=== PATIENT | female | born 1965 | race African-American/Black ===

== ENCOUNTER 2020-06-13 03:34 | Inpatient (IN) | payer SELFPAY ==
[2020-06-13] MEDS ORDERED: FUROSEMIDE 40 MG/4 ML VIAL ONE (04:33)
[2020-06-13 05:14] LABS: Absolute Lymphocytes (CBC) 2.2 K/uL (0.7-4.9); Hematocrit 44.8 % (36.0-45.0); Lymphocytes % 25.8 % (15.3-44.8); MPV 10.9 fL (7.6-11.3); Protime INR 1.67; RBC Red Blood Cell Count 4.59 M/uL (3.86-4.86)
[2020-06-13 05:43] LABS: Albumin 3.6 g/dL (3.4-5.0); Bilirubin Direct 1.5 mg/dL (0-0.2); Magnesium 2.2 mg/dL (1.8-2.4); Potassium 3.7 mmol/L (3.5-5.1); Troponin (Emerg Dept Use Only) 0.15 ng/mL (0.0-0.045)
[2020-06-13] MEDS ORDERED: METOPROLOL TARTRATE 5 MG/5 ML INJ IV ONE (05:54)
[2020-06-13 06:08] LABS: Barbiturates NEGATIVE (NEGATIVE); Benzodiazepines NEGATIVE (NEGATIVE); Cocaine NEGATIVE (NEGATIVE); METHAMPHETAM NEGATIVE (NEGATIVE); Methadone NEGATIVE (NEGATIVE); Opiates NEGATIVE (NEGATIVE); Phencyclidine NEGATIVE (NEGATIVE); THC Cannibis NEGATIVE (NEGATIVE)
[2020-06-13 06:10] LABS: Thyroid Stimulating Hormone 4.58 uIU/mL (0.360-3.740)
[2020-06-13] MEDS ORDERED: NITROGLYCERIN 1 GM PKT TD ONE (06:15)
[2020-06-13 06:36] LABS: Anisocytosis 1+; Blood Morphology Comment NOTED (NOT SEEN); Hypochromasia 1+; Macrocytosis 2+; Platelet Estimate ADEQ; Polychromasia 1+
--- NOTE | 2020-06-13 07:35 | RAD REPORT ---
EXAM DESCRIPTION: CT - Abdomen Pelvis Wo Contrast - 06/13/2020 6:49 am CLINICAL HISTORY: Abdominal pain COMPARISON: None TECHNIQUE: Computed axial tomography of the abdomen and pelvis was obtained. IV and oral contrast we re not requested. All CT scans are performed using dose optimization technique as appropriate and may include automated exposure control or mA/KV adjustment according to patient size. FINDINGS: The evaluation of solid organs, vessels and bowel is limited secondary to the lack of con trast administration. A couple tiny low-density lesions within within the liver are nonspecific but probably cysts Spleen, pancreas, adrenals and kidneys appear grossly normal. A ventral hernia within the lower abdomen has a neck of 20 millimeters. The herniated fat measures 9 centimeters. Small amount of fluid is present within the hernia. The uterus is enlarged and lobulated containing calcification. The uterus measures 13 x 15 x 12 centi meters. The heart is markedly enlarged. A small pericardial effusion is present. IMPRESSION: Enlarged fibroid uterus Marked cardiomegaly with small pericardial effusion
--- NOTE | 2020-06-13 07:58 | EDPHYS ---
Physician Documentation [facility] Name: Tyrel Harris Age: 54 yrs Sex: Female : 1965 Arrival Date: 06/13/2020 Time: 03:40 Bed 4 Private MD: ED Physician Wilder Marcial HPI: 06/13 04:26 This 54 yrs old Black Female presents to ER via Ambulatory with complaints of High mh7 Blood Pressure, Low Blood Sugar, Cough, Shortness Of Breath, Fluid retention. 04:26 The patient has shortness of breath with light activity. mh7 04:27 Onset: The symptoms/episode began/occurred 3 week(s) ago, and became worse 3 day(s) mh7 ago. Duration: The symptoms are intermittent, with no pattern. The patient's shortness of breath is aggravated by exertion, light activity, is alleviated by rest. Associated signs and symptoms: Pertinent negatives: chest pain, non-productive cough, productive cough, diaphoresis, dizziness, fever, hemoptysis, loss of consciousness, nausea, numbness in extremities, visual changes, vomiting. Severity of symptoms: At their worst the symptoms were moderate today, in the emergency department the symptoms are unchanged. The patient has been recently seen by a physician: the patient's primary care provider. 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 - Social history:: Smoking status: Patient denies any tobacco usage or history of. ROS: 04:27 Constitutional: Negative for fever, chills, and weight loss, Eyes: Negative for injury, mh7 pain, redness, and discharge, ENT: Negative for injury, pain, and discharge, Neck: Negative for injury, pain, and swelling, Abdomen/GI: Negative for abdominal pain, nausea, vomiting, diarrhea, and constipation, Back: Negative for injury and pain, : Negative for injury, bleeding, discharge, and swelling, Skin: Negative for injury, rash, and discoloration, Neuro: Negative for headache, weakness, numbness, tingling, and seizure, Psych: Negative for depression, anxiety, suicide ideation, homicidal ideation, and hallucinations, Allergy/Immunology: Negative for hives, rash, and allergies, Endocrine: Negative for neck swelling, polydipsia, polyuria, polyphagia, and marked weight changes, Hematologic/Lymphatic: Negative for swollen nodes, abnormal bleeding, and unusual bruising. Exam: 04:27 Head/Face: Normocephalic, atraumatic. Eyes: Pupils equal round and reactive to light, mh7 extra-ocular motions intact. Lids and lashes normal. Conjunctiva and sclera are non-icteric and not injected. Cornea within normal limits. Periorbital areas with no swelling, redness, or edema. Neck: Trachea midline, no thyromegaly or masses palpated, and no cervical lymphadenopathy. Supple, full range of motion without nuchal rigidity, or vertebral point tenderness. No Meningismus. Chest/axilla: Normal chest wall appearance and motion. Nontender with no deformity. No lesions are appreciated. 04:27 Abdomen/GI: Soft, non-tender, with normal bowel sounds. No distension or tympany. No guarding or rebound. No evidence of tenderness throughout. Back: No spinal tenderness. No costovertebral tenderness. Full range of motion. Skin: Warm, dry with normal turgor. Normal color with no rashes, no lesions, and no evidence of cellulitis. 04:27 Neuro: Awake and alert, GCS 15, oriented to person, place, time, and situation. Cranial nerves II-XII grossly intact. Motor strength 5/5 in all extremities. Sensory grossly intact. Cerebellar exam normal. Normal gait. Psych: Awake, alert, with orientation to person, place and time. Behavior, mood, and affect are within normal limits. 04:27 Constitutional: The patient appears alert, awake, anxious, uncomfortable. 04:27 Cardiovascular: Rate: tachycardic, Rhythm: regular, Pulses: no pulse deficits are appreciated, Heart sounds: normal, normal S1and S2, Edema: pedal edema, that is moderate, JVD: is not appreciated. 04:27 Respiratory: mild respiratory distress is noted, Respirations: prolonged exhalation, that is mild, Breath sounds: rhonchi, that are moderate, are scattered, Respiratory rate: 22 04:27 Musculoskeletal/extremity: Extremities: noted in the right leg and left leg: swelling, ROM: intact in all extremities, Circulation is intact in all extremities. Sensation intact. Compartment Syndrome exam of affected extremity: is normal. no pain, no numbness, no tingling, no sensation deficit, no palor, no weak pulses, Joints: All joints appear normal with full range of motion. Vital Signs: 03:54 BP 237 / 161; Pulse 131; Resp 22; Temp 98.2; Pulse Ox 99% on R/A; Weight 90.72 kg; ea Height 5 ft. (152.40 cm); 04:30 BP 218 / 153; Pulse 126; Resp 20; Pulse Ox 97% ; Pain 0/10; mt2 05:12 BP 198 / 157; Pulse 124; Resp 19; Pulse Ox 99% on R/A; Pain 0/10; mt2 06:00 BP 182 / 148; Pulse 113; Resp 20; Pulse Ox 100% ; ea 07:00 BP 191 / 147; Pulse 108; Resp 17; Pulse Ox 100% ; bp 08:22 BP 196 / 143; Pulse 101; Resp 17; Pulse Ox 99% ; bp 08:51 BP 175 / 105; Pulse 101; Resp 16; Pulse Ox 100% ; bp 10:30 BP 183 / 121; Pulse 102; Resp 22; Pulse Ox 98% ; bp 12:24 BP 172 / 114; Pulse 104; Resp 33; Pulse Ox 99% ; bp 14:18 BP 173 / 122; Pulse 105; Resp 27; Pulse Ox 98% ; bp 03:54 Body Mass Index 39.06 (90.72 kg, 152.40 cm) ea MDM: 04:17 Patient medically screened. [facility] 07:00 Transition of care: After a detail discussion of the patient's case, care is mh7 transferred to Wilder Marcial MD. 07:54 Differential diagnosis: Pneumothorax pulmonary edema, CHF, malignant HTN, [place]. Data rn reviewed: vital signs, nurses notes, lab test result(s), EKG, radiologic studies, CT scan, plain films, and as a result, I will admit patient. Counseling: I had a detailed discussion with the patient and/or guardian regarding: the historical points, exam findings, and any diagnostic results supporting the discharge/admit diagnosis, lab results, radiology results, the need for further work-up and treatment in the hospital. ED course: Pt signed out to me by Dr. Rasheed pending ct abdomen. Reports labs consistent with volume overload/CHF possibly, with elevated BNP and troponin, ECG no ischemia, given metoprolol and nitropaste prior to my arrival, patient feels a little better with some improvement of BP. Plan was to admit for malignant HTN and possible CHF once ct abdomen neg. . 06/13 04:10 Order name: Basic Metabolic Panel; Complete Time: 07:03 ea 06/13 04:10 Order name: CBC with Diff; Complete Time: 07:03 ea 06/13 04:10 Order name: LFT's; Complete Time: 07:04 ea 06/13 04:10 Order name: Magnesium; Complete Time: 07:04 ea 06/13 04:10 Order name: NT PRO-BNP; Complete Time: 07:04 ea 06/13 04:10 Order name: PT-INR; Complete Time: 05:29 ea 06/13 04:10 Order name: Troponin (emerg Dept Use Only); Complete Time: 07:04 ea 06/13 05:32 Order name: UDS; Complete Time: 06:10 mh7 06/13 05:48 Order name: Thyroid Stimulating Hormone; Complete Time: 07:04 EDMS 06/13 06:12 Order name: T4 Free; Complete Time: 07:04 EDMS 06/13 06:21 Order name: Urine Dipstick--Ancillary (enter results); Complete Time: 08:32 ar5 06/13 06:21 Order name: Urine --Ancillary (enter results); Complete Time: 08:32 ar5 06/13 06:21 Order name: AMMONIA; Complete Time: 07:04 ea 06/13 06:36 Order name: Manual Differential; Complete Time: 07:04 EDMS 06/13 09:48 Order name: CBC with Automated Diff EDMS 06/13 09:48 Order name: CBC with Automated Diff EDMS 06/13 09:48 Order name: Comprehensive Metabolic Panel EDMS 06/13 09:48 Order name: Comprehensive Metabolic Panel EDMS 06/13 09:48 Order name: Lactate EDMS 06/13 09:48 Order name: Lactate EDMS 06/13 09:48 Order name: Lipid Profile EDMS 06/13 09:48 Order name: Lipid Profile EDMS 06/13 09:48 Order name: Magnesium [facility] 06/13 09:48 Order name: Magnesium [facility] 06/13 09:48 Order name: NT PRO-BNP [facility] 06/13 09:48 Order name: NT PRO-BNP [facility] 06/13 09:48 Order name: Phosphorus [facility] 06/13 09:48 Order name: Phosphorus [facility] 06/13 04:10 Order name: XRAY Chest (1 view); Complete Time: 11:46 06/13 04:10 Order name: EKG; Complete Time: 04:10 06/13 04:10 Order name: Cardiac monitoring; Complete Time: 04:11 06/13 04:10 Order name: EKG - Nurse/Tech; Complete Time: 04:11 06/13 04:10 Order name: IV Saline Lock; Complete Time: 04:11 06/13 04:10 Order name: Labs collected and sent; Complete Time: 04:12 06/13 04:10 Order name: O2 Per Protocol; Complete Time: 04:12 06/13 04:10 Order name: O2 Sat Monitoring; Complete Time: 04:12 06/13 05:33 Order name: Urine Dipstick-Ancillary (obtain specimen); Complete Time: 06:56 [facility] 06/13 05:33 Order name: Urine Test (obtain specimen); Complete Time: 06:56 06/13 06:10 Order name: CT Abd/Pelvis - Without Contrast; Complete Time: 07:47 [facility] 06/13 09:48 Order name: CONS Physician Consult [facility] 06/13 09:48 Order name: Heart Healthy [facility] 06/13 09:48 Order name: Troponin I [facility] 06/13 09:48 Order name: Troponin I [facility] 06/13 09:48 Order name: Troponin I [facility] 06/13 11:11 Order name: COVID-19 aa5 06/13 11:51 Order name: CORONAVIRUS [facility] 06/13 12:53 Order name: SARS-COV-2 RT PCR [facility] 06/13 14:34 Order name: Diet Regular; Complete Time: 14:34 kj1 Administered Medications: 04:25 Drug: Lasix 40 mg Route: IVP; Site: right antecubital; ea 06:56 Follow up: Response: No adverse reaction ea 05:28 CANCELLED (Physician Discretion): Nitro-Bid Ointment 2 % 1 inches Transdermal once [facility] 05:42 Drug: Lopressor 5 mg Route: IVP; Site: right antecubital; ea 06:56 Follow up: Response: No adverse reaction ea 06:10 Drug: Nitro-Bid Ointment 2 % 1 inches Route: Transdermal; Site: anterior chest wall; mt2 08:20 Drug: hydrALAZINE 10 mg Route: IV; Rate: calculated rate; Site: right antecubital; bp 08:52 Follow up: Response: Blood pressure is lowered; IV Status: Completed infusion bp Disposition: 06/13/20 07:58 Hospitalization ordered by Rupinder Condon for Inpatient Admission. Preliminary diagnosis are Hypertension, Dyspnea, unspecified, Volume overload. - Bed requested for Intensive Care Unit. - Status is Inpatient Admission. bp - Condition is Stable. - Problem is new. - Symptoms have improved. Signatures: Dispatcher [employer] EDMS Wilder Marcial MD MD rn Antunez, Elena, RN RN ea Peltier, Brian, RN RN bp Holmes, Maurice, MD MD [facility] Little Mendes RN RN mt2 Corrections: (The following items were deleted from the chart) 05:28 05:26 Nitro-Bid Ointment 2 % 1 inches Transdermal once ordered. [place] [id number] 05:48 05:34 THYROID STIMULAT HORMONE+C.LAB.BRZ ordered. EDRI EDMS 06:36 05:35 CBC Smear Scan ordered. EDRI EDMS 11:31 07:58 Hospitalization Ordered by Rupinder Condon MD for Inpatient Admission. Preliminary rn diagnosis is Hypertension; Dyspnea, unspecified; Volume overload. Bed requested for Telemetry/MedSurg (Inpatient). Status is Inpatient Admission. Condition is Stable. Problem is new. Symptoms have improved. rn 18:47 11:31 06/13/2020 07:58 Hospitalization Ordered by Rupinder Condon MD for Inpatient bp Admission. Preliminary diagnosis is Hypertension; Dyspnea, unspecified; Volume overload. Bed requested for Intensive Care Unit. Status is Inpatient Admission. Condition is Stable. Problem is new. Symptoms have improved. rn
--- NOTE | 2020-06-13 07:58 | ER ---
Nurse's Notes [facility] Name: Tyrel Harris Age: 54 yrs Sex: Female : 1965 Arrival Date: 06/13/2020 Time: 03:40 Bed 4 Private MD: Diagnosis: Hypertension;Dyspnea, unspecified;Volume overload Presentation: 06/13 03:54 Chief complaint: Patient states: Reports she has been running high blood pressures for ea the past three weeks reports she saw her PCP Jesu Stephens on Wednesday of this week and was prescribed triamterene 50 mg. Pt reports her symptoms worsened and she feels like she is retaining fluid and is short of breath with exertion. Coronavirus screen: At this time, the client does not indicate any symptoms associated with coronavirus-19. Ebola Screen: No symptoms or risks identified at this time. Initial Sepsis Screen: Does the patient meet any 2 criteria? HR > 90 bpm. Does the patient have a suspected source of infection? No. Patient's initial sepsis screen is negative. Risk Assessment: Do you want to hurt yourself or someone else? Patient reports no desire to harm self or others. Onset of symptoms was June 13, 2020. 03:54 Method Of Arrival: Ambulatory ea 03:54 Acuity: ULYSSES 3 ea Triage Assessment: 03:58 General: Appears uncomfortable, Behavior is appropriate for age. Pain: Denies pain. ea Neuro: Level of Consciousness is awake, alert, obeys commands, Oriented to person, place, time, situation. Respiratory: Reports shortness of breath on exertion Onset: The symptoms/episode began/occurred reports it has been going on for a few days, the patient has mild shortness of breath. Derm: Skin is pink, warm \T\ dry. Musculoskeletal: Circulation, motion, and sensation intact. 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 - Social history:: Smoking status: Patient denies any tobacco usage or history of. Screenin:58 Abuse screen: Denies threats or abuse. Nutritional screening: No deficits noted. ea Tuberculosis screening: No symptoms or risk factors identified. Fall Risk None identified. Assessment: 04:28 Reassessment: Patient and/or family updated on plan of care and expected duration. Pain mt2 level reassessed. Patient is alert, oriented x 3, equal unlabored respirations, skin warm/dry/pink. General: Appears distressed, uncomfortable, Behavior is cooperative. Pain: Denies pain. Neuro: No deficits noted. Cardiovascular: Reports shortness of breath, Heart tones present Capillary refill < 3 seconds Rhythm is sinus tachycardia. Respiratory: Airway is patent Respiratory effort is labored, Respiratory pattern is regular, Breath sounds with wheezes. GI: No deficits noted. : No deficits noted. EENT: No deficits noted. Derm: No deficits noted. Musculoskeletal: No deficits noted. 05:00 Cardiovascular: Musculoskeletal: Swelling present in right foot and left foot. mt2 05:39 Reassessment: Dottie (daughter) [phone], [id number]. ea 05:40 Reassessment: Patient and/or family updated on plan of care and expected duration. Pain ea level reassessed. Patient is alert, oriented x 3, equal unlabored respirations, skin warm/dry/pink. 06:00 Reassessment: Patient and/or family updated on plan of care and expected duration. Pain ea level reassessed. Patient is alert, oriented x 3, equal unlabored respirations, skin warm/dry/pink. 07:00 Reassessment: RECD REPORT FROM MIROSLAVA DRAKE. 54YO BF P/W SOB AND EDEMA. LAB RESULTS PENDING bp FOR DISPO. 08:22 Reassessment: ADMIT INITIATED. PT REMAINS HYPERTENSIVE, PROVIDER AWARE. bp 10:30 Reassessment: ADMIT IN PROCESS. NO S/S ACUTE DISTRESS. bp 12:24 Reassessment: PT RESTING QUIETLY, NO S/S ACUTE DISTRESS. ADMIT IN PROCESS. bp 14:18 Reassessment: PT RESTING QUIETLY, VS STABLE ON MONITOR. bp 18:46 Reassessment: REPORT TO ICU NURSE, PT TO 9. bp Vital Signs: 03:54 BP 237 / 161; Pulse 131; Resp 22; Temp 98.2; Pulse Ox 99% on R/A; Weight 90.72 kg; ea Height 5 ft. (152.40 cm); 04:30 BP 218 / 153; Pulse 126; Resp 20; Pulse Ox 97% ; Pain 0/10; mt2 05:12 BP 198 / 157; Pulse 124; Resp 19; Pulse Ox 99% on R/A; Pain 0/10; mt2 06:00 BP 182 / 148; Pulse 113; Resp 20; Pulse Ox 100% ; ea 07:00 BP 191 / 147; Pulse 108; Resp 17; Pulse Ox 100% ; bp 08:22 BP 196 / 143; Pulse 101; Resp 17; Pulse Ox 99% ; bp 08:51 BP 175 / 105; Pulse 101; Resp 16; Pulse Ox 100% ; bp 10:30 BP 183 / 121; Pulse 102; Resp 22; Pulse Ox 98% ; bp 12:24 BP 172 / 114; Pulse 104; Resp 33; Pulse Ox 99% ; bp 14:18 BP 173 / 122; Pulse 105; Resp 27; Pulse Ox 98% ; bp 03:54 Body Mass Index 39.06 (90.72 kg, 152.40 cm) ea ED Course: 03:40 Patient arrived in ED. es 03:47 Little Mendes, NOELLE is Primary Nurse. ct2 03:58 Triage completed. ea 03:58 Patient has correct armband on for positive identification. Placed in gown. Bed in low ea position. Call light in reach. Side rails up X 1. 03:58 Arm band placed on right wrist. Patient placed in an exam room, on a stretcher, on ea court recording monitor, on pulse oximetry. 04:11 Mario Rasheed MD is Attending Physician. [facility] 04:20 XRAY Chest (1 view) In Process Unspecified. EDMS 04:26 Initial lab(s) drawn, by mn, sent to lab. Inserted saline lock: 20 gauge in right mt2 antecubital area, using aseptic technique. Blood collected. 06:49 CT Abd/Pelvis - Without Contrast In Process Unspecified. EDMS 07:00 Primary Nurse role handed off by Little Mendes, NOELLE bp 07:00 Jonas Hodges, NOELLE is Primary Nurse. bp 07:02 Attending Physician role handed off by Mario Rasheed MD rn 07:02 Wilder Marcial MD is Attending Physician. rn 07:57 Rupinder Condon MD is Hospitalizing Provider. rn 18:47 No provider procedures requiring assistance completed. Patient admitted, IV remains in bp place. Administered Medications: 04:25 Drug: Lasix 40 mg Route: IVP; Site: right antecubital; ea 06:56 Follow up: Response: No adverse reaction ea 05:28 CANCELLED (Physician Discretion): Nitro-Bid Ointment 2 % 1 inches Transdermal once mh7 05:42 Drug: Lopressor 5 mg Route: IVP; Site: right antecubital; ea 06:56 Follow up: Response: No adverse reaction ea 06:10 Drug: Nitro-Bid Ointment 2 % 1 inches Route: Transdermal; Site: anterior chest wall; mt2 08:20 Drug: hydrALAZINE 10 mg Route: IV; Rate: calculated rate; Site: right antecubital; bp 08:52 Follow up: Response: Blood pressure is lowered; IV Status: Completed infusion bp Outcome: 07:58 Decision to Hospitalize by Provider. rn 18:46 Admitted to ICU accompanied by nurse, accompanied by tech, via stretcher, room 9, bp Report called to MARY DRAKE 18:46 Condition: stable 18:46 Instructed on the need for admit. 18:47 Patient left the ED. bp Signatures: Dispatcher [employer] Nae An Roman, MD MD rn Antunez, Elena, RN RN ea Peltier, Brian, RN RN bp Holmes, Maurice, MD MD [facility] Little Mendes RN RN mt2 Corrections: (The following items were deleted from the chart) 04:05 03:54 Chief complaint: Patient states: Reports she has been running high blood ea pressures for the past three weeks reports she saw her PCP Jesu Stephens and was prescribed triamterene 50 mg. Pt reports her symptoms worsened and she feels like she is retaining fluid and is short of breath with exertion ea
[2020-06-13] MEDS ORDERED: HYDRALAZINE HCL 20 MG/ML VIAL ONE (08:28)
[2020-06-13 08:31] LABS: Urine Blood 2+ (NEG); Urine Glucose NEGATIVE (NEG); Urine Protein 3+ (NEG)
[2020-06-13] MEDS ORDERED: ONDANSETRON 4 MG/2 ML VIAL IV PRN (09:44)
[2020-06-13] MEDS ORDERED: ACETAMINOPHEN 500 MG TAB PO PRN (09:44)
[2020-06-13] MEDS ORDERED: NICARDIPINE HCL 25 MG in NA CHLORIDE 0.9% 240 ML IV PRN (09:48)
[2020-06-13] MEDS: NA CHLORIDE 0.9% 1,000 ML IV SCH (10:00)
[2020-06-13] MEDS: AMLODIPINE 10 MG TAB PO SCH (11:00)
--- NOTE | 2020-06-13 11:32 | RAD REPORT ---
EXAM DESCRIPTION: RAD - Chest Single View - 06/13/2020 4:24 am CLINICAL HISTORY: The patient is 54 years old and is Female; SOB TECHNIQUE: Frontal view of the chest. COMPARISON: No relevant prior studies available. FINDINGS: LUNGS: Unremarkable. No consolidation. PLEURAL SPACE: Unremarkable. No pneumothorax. HEART: The cardiac silhouette is enlarged. MEDIASTINUM: Unremarkable. BONES/JOINTS: Unremarkable. IMPRESSION: Cardiomegaly without failure. Given the appearance of the cardiac silhouette, underlying pericardial effusion is not excluded. Consider follow-up with echocardiogram. Electronically signed by: Maritza Blank MD 06/13/2020 4:52 AM CDT Due to temporary technical issues with the PACS/Fluency reporting system, reports are being signed by the in house radiologist without review as a courtesy to ensure prompt reporting. The interpreting r adiologist is fully responsible for the content of the report.
[2020-06-13] MEDS ORDERED: AMLODIPINE 10 MG TAB ONE (16:08)
[2020-06-13] MEDS ORDERED: NA CHLORIDE 0.9% 1,000 ML ONE (16:08)
[2020-06-13] MEDS ORDERED: METOPROLOL TAR 25 MG TAB PO SCH (18:00)
[2020-06-13] MEDS ORDERED: cloNIDine HCL 0.1 MG TAB PO ONE (18:19)
[2020-06-13] MEDS ORDERED: Nicardipine/NS 25 MG/250 ML KIT IV ONE (18:34)
[2020-06-13] MEDS: METOPROLOL TAR 50 MG TAB PO SCH (19:09)
[2020-06-13] MEDS: ENOXAPARIN 40 MG/0.4 ML SQ SCH (19:10)
[2020-06-13] MEDS ORDERED: ENOXAPARIN 40 MG/0.4 ML SQ ONE (19:15)
[2020-06-13] MEDS ORDERED: METOPROLOL TAR 50 MG TAB ONE (19:15)
[2020-06-14] MEDS ORDERED: ZIPRASIDONE MESYLA 20 MG/VIAL IM ONE (00:14)
[2020-06-14] MEDS ORDERED: WATER FOR INJ,STERILE 10 ML ONE (00:14)
[2020-06-14] MEDS: NA CHLORIDE 0.9% 1,000 ML IV SCH (05:39)
[2020-06-14] MEDS: METOPROLOL TAR 50 MG TAB PO SCH ×2 (05:39→18:01)
[2020-06-14] MEDS ORDERED: NA CHLORIDE 0.9% 1,000 ML ONE ×2 (05:42→09:00)
[2020-06-14] MEDS ORDERED: METOPROLOL TAR 50 MG TAB ONE ×2 (05:42→16:56)
[2020-06-14 06:02] LABS: Absolute Lymphocytes (CBC) 0.9 K/uL (0.7-4.9); Basophils % 0.6 % (0-1.3); Hematocrit 45.8 % (36.0-45.0); Lymphocytes % 9.8 % (15.3-44.8); RBC Red Blood Cell Count 4.69 M/uL (3.86-4.86)
[2020-06-14 06:46] LABS: Albumin 2.8 g/dL (3.4-5.0); Bilirubin Total 2.6 mg/dL (0.2-1.0); Phosphorus 3.4 mg/dL (2.5-4.9); Potassium 3.5 mmol/L (3.5-5.1); Protein, Total 5.7 g/dL (6.4-8.2)
--- NOTE | 2020-06-14 07:55 | EKG ---
Test Date: 2020-06-13 Test Time: 05:58:15 Corner Former: SERGEI MEASUREMENT RESULTS: Intervals: Rate: 114 NM: 162 QRSD: 108 QT: 338 QTc: 465 [place]: P: 64 NM: 162 QRS: 14 T: 59 INTERPRETIVE STATEMENTS: Sinus tachycardia Biatrial enlargement Abnormal ECG Compared to ECG 06/13/2020 03:58:11 Right-axis deviation no longer present Left ventricular hypertrophy no longer present Early repolarization no longer present Electronically Signed On 06-14-20 07:53:27 CDT by Efrain Reddy
[2020-06-14] MEDS ORDERED: ENOXAPARIN 40 MG/0.4 ML SQ ONE (09:00)
[2020-06-14] MEDS ORDERED: AMLODIPINE 10 MG TAB ONE (09:00)
[2020-06-14] MEDS: ENOXAPARIN 40 MG/0.4 ML SQ SCH (09:05)
[2020-06-14] MEDS: AMLODIPINE 10 MG TAB PO SCH (09:05)
--- NOTE | 2020-06-14 10:06 | P.HP ---
Certification for Inpatient Patient admitted to: Inpatient With expected LOS: >2 Midnights Patient will require the following post-hospital care: None Practitioner: I am a practitioner with admitting privileges, knowledge of patient current condition, hospital course, and medical plan of care. Services: Services provided to patient in accordance with Admission requirements found in Title 42 Section 412.3 of the Code of Federal Regulations Patient History Date of Service: 06/13/20 Reason for admission: HYPERTENSIVE EMERGENCY History of Present Illness: PATIENT IS A 54-YEAR-OLD FEMALE CAME TO THE HOSPITAL WITH SIGNIFICANTLY ELEVATED BLOOD PRESSURE OF 240/150. PATIENT WAS STARTED ON ANTI HYPERTENSIVES IN THE EMERGENCY ROOM. HOWEVER, HER BLOOD PRESSURE WAS NOT IMPROVING SO WILL GO AHEAD AND START HER ON A CARDENE DRIP. WILL ALSO CONTINUE ORAL ANTI HYPERTENSIVES AND SLOWLY WEAN OFF THE CARDENE DRIP. WATER BRING THE BLOOD PRESSURE DOWN GRADUALLY PATIENT HAS HAD SIGNIFICANTLY ELEVATED BLOOD PRESSURE POSSIBLY FOR QUITE A WHILE. SHE IS FEELING A LITTLE BIT BETTER AND WILL MONITOR HER IN THE ICU. Allergies No Known Allergies Allergy (Verified 06/13/20 19:28) Home Medications: Triamterene 1 tab PO DAILY 06/13/20 hydroCHLOROthiazide [Hydrochlorothiazide] 1 tab PO DAILY 06/13/20 - Past Medical/Surgical History Has patient received pneumonia vaccine in the past: No Diabetic: No -: hypertension Past Surgical History: Patient denies surgical history - Family History Father Medical History: Hypertension Mother Medical History: Hypertension - Social History Smoking Status: Never smoker Alcohol use: No CD- Drugs: No Caffeine use: Yes Place of Residence: Home Review of Systems 10-point ROS is otherwise unremarkable Physical Examination - Vital Signs Temperature: 98.5 F Blood Pressure: 155/122 Pulse: 99 Respirations: 20 Pulse Ox (%): 99 - Physical Exam General: Alert, In no apparent distress, Oriented x3 HEENT: Atraumatic, PERRLA, Mucous membr. moist/pink, EOMI, Sclerae nonicteric Neck: Supple, 2+ carotid pulse no bruit, No LAD, Without JVD or thyroid abnormality Respiratory: Clear to auscultation bilaterally, Normal air movement Cardiovascular: Regular rate/rhythm, Normal S1 S2, No murmurs Gastrointestinal: Normal bowel sounds, Soft and benign, Non-distended, No tenderness Musculoskeletal: No clubbing, No swelling, No tenderness Integumentary: No rashes Neurological: Normal gait, Normal speech, Normal strength at 5/5 x4 extr, Normal tone, Sensation intact, Cranial nerves 3-12 intact, Normal affect Lymphatics: No axilla or inguinal lymphadenopathy Assessment & Plan - Problems (Diagnosis) (1) Hypertensive emergency, no CHF Current Visit: Yes Status: Acute (2) Chest pain, rule out acute myocardial infarction Current Visit: Yes Status: Acute - Plan PLAN: 1. START CARDENE DRIP 2. START LOPRESSOR AND LOSARTAN ORALLY IN GRADUALLY WEAN OFF THE CARDENE DRIP 3. ECHOCARDIOGRAM 4. CARDIAC MEDS 5. GI AND DVT PROPHYLAXIS Discharge Plan: Home Plan to discharge in: Greater than 2 days - Advance Directives Does patient have a Living Will: No Does patient have a Durable POA for Healthcare: No - Code Status/Comfort Care Code Status Assessed: Yes Code Status: Full Code Critical Care: Yes Time Spent Managing PTS Care (In Minutes): 45
[2020-06-14] MEDS ORDERED: FUROSEMIDE 40 MG/4 ML VIAL IV ONE (10:08)
[2020-06-14] MEDS ORDERED: FUROSEMIDE 40 MG/4 ML VIAL ONE (12:23)
[2020-06-14] MEDS: HYDRALAZINE HCL 25 MG TABLET PO SCH ×2 (14:20→20:05)
[2020-06-14 15:20] VITALS: O2SAT 99
[2020-06-14] MEDS ORDERED: METOPROLOL TAR 25 MG TAB ONE (16:48)
--- NOTE | 2020-06-14 22:55 | P.PN ---
Subjective Date of Service: 06/14/20 Subjective: No new changes, No C/O voiced Pt is feeling better; will wean off cardene drip. Add hydralazine to regimen. If able to get Cardene drip weaned off then we will transfer to general medical floor. Awaiting echocardiogram results as well. Review of Systems 10-point ROS is otherwise unremarkable Physical Examination - Vital Signs Temperature: 98.6 F Blood Pressure: 138/96 Pulse: 100 Respirations: 20 Pulse Ox (%): 100 - Physical Exam General: Alert, In no apparent distress, Oriented x3 Respiratory: Clear to auscultation bilaterally, Normal air movement Cardiovascular: Regular rate/rhythm, Normal S1 S2, No murmurs Gastrointestinal: Normal bowel sounds, Soft and benign, Non-distended, No tenderness Musculoskeletal: No clubbing, No swelling, No tenderness Integumentary: No rashes Neurological: Sensation intact, Cranial nerves 3-12 intact - Studies Medications List Reviewed: Yes Assessment & Plan - Problems (Diagnosis) (1) Hypertensive emergency, no CHF Current Visit: Yes Status: Acute (2) Chest pain, rule out acute myocardial infarction Current Visit: Yes Status: Acute - Plan PLAN: 1. START CARDENE DRIP ; WILL GRADUALLY WEAN OFF TODAY. 2. START LOPRESSOR AND AMLODIPINE AND HAVE ADDED HYDRALAZINE TO THE REGIMEN. WE WILL ATTEMPT TO WEAN OFF THE CARDENE DRIP AND TRANSFER TO GENERAL MEDICAL FLOOR TODAY. 3. ECHOCARDIOGRAM RESULTS ARE PENDING 4. CONTINUE WITH CARDIAC MEDS 5. GI AND DVT PROPHYLAXIS Discharge Plan: Home Plan to discharge in: Greater than 2 days - Advance Directives Does patient have a Living Will: No Does patient have a Durable POA for Healthcare: No - Code Status/Comfort Care Code Status: Full Code Critical Care: Yes Time Spent Managing PTS Care (In Minutes): 35
[2020-06-15 03:28] VITALS: BMI 42.2
[2020-06-15] MEDS: METOPROLOL TAR 50 MG TAB PO SCH (05:15)
--- NOTE | 2020-06-15 05:38 | CON ---
Date of Consultation: 06/14/2020 Reason For Consultation: Hypertensive crisis. History Of Present Illness: Ms. Harris is a 54-year-old woman, who came in with cough, shortness of b reath, hypertension. Denied any chest pain. She denied any nausea, vomiting, diaphoresis, PND, orth opnea, pedal edema, palpitations, or syncope. She denied fever or chills. She came in with a blood pressure 178/128. Her last blood pressure was 140/100. She had been placed on Norvasc, Cardene drip , and metoprolol. The only medication she took at home was triamterene with hydrochlorothiazide. Th e patient had a creatinine of 1.57 on admission and it was one-down to 1.11. Past Medical History: Include only hypertension. Allergies: NONE. Review of Systems: Negative. Social History: Negative. Family History: Noncontributory. Physical Examination: Vital Signs: Her last pressure was 140/100. She was in a sinus rhythm. HEENT: Negative. Neck: Supple with no bruit. Chest: Clear. Cardiac: Revealed a regular rhythm and rate with an S4 gallops. No murmurs or rubs. Abdomen: Benign. Extremities: Revealed no clubbing, cyanosis, or edema. Laboratory Data: Chest x-ray is negative. EKG showed LVH. Troponin was high. BNP was high. Her T SH was elevated. Her ALT and AST were all elevated. Impression And Plan: Hypertensive crisis, on Norvasc, Cardene, and metoprolol. I would personally d iscontinue the Cardene drip. Increase Norvasc, increase metoprolol. Put her back on hydrochlorothia zide and put her on hydralazine. She needs to have her thyroid level addressed. She needs to have h er liver enzymes addressed as well. I believe the troponin increase and the BNP could increase are s econdary to her hypertension. There is no evidence of acute coronary syndrome. I will continue to f darwin her and I will discuss the case further with Dr. Condon. MEERA/DHARMESH Voice ID: [id number] Report ID: [id number]
[2020-06-15 06:37] LABS: Potassium 3.9 mmol/L (3.5-5.1)
[2020-06-15] MEDS: HYDRALAZINE HCL 25 MG TABLET PO SCH (07:57)
[2020-06-15] MEDS: ENOXAPARIN 40 MG/0.4 ML SQ SCH (07:58)
[2020-06-15] MEDS: AMLODIPINE 10 MG TAB PO SCH (07:58)
[2020-06-15 08:19] VITALS: BP 140/100; TEMP 97.6
--- NOTE | 2020-06-15 09:46 | P.DS ---
Admission Date: 06/13/20 Discharge Date: 06/15/20 Primary Care Provider: Dr. Kyle-[facility] Disposition: ROUTINE DISCHARGE Discharge Condition: GOOD Reason for Admission: HYPERTENSIVE EMERGENCY Consultations: Cardiology-Dr. Reddy Procedures: CT scan: FINDINGS: The evaluation of solid organs, vessels and bowel is limited secondary to the lack of contrast administration. A couple tiny low-density lesions within within the liver are nonspecific but probably cysts Spleen, pancreas, adrenals and kidneys appear grossly normal. A ventral hernia within the lower abdomen has a neck of 20 millimeters. The herniated fat measures 9 centimeters. Small amount of fluid is present within the hernia. The uterus is enlarged and lobulated containing calcification. The uterus measures 13 x 15 x 12 centimeters. The heart is markedly enlarged. A small pericardial effusion is present. IMPRESSION: Enlarged fibroid uterus Marked cardiomegaly with small pericardial effusion ECHO: EF 20% Medical problem list: Hypertensive urgency with hypertension complicated with new chronic systolic CHF, cardiomegaly Elevated troponin likely related to above Elevated liver function suspect underlying fatty liver verses other etiology Acute renal insufficiency likely related to above Abnormal thyroid function CT showing enlarged fibroid uterus Brief History of Present Illness: 54-year-old female presented with shortness of breath. Patient found to have elevated blood pressure. Patient reported history of hypertension but had not been on medication in quite some time. Patient required Cardene drip for blood pressure control. Troponin slightly elevated as well. Patient admitted for further evaluation and treatment. Hospital Course: Patient presented with shortness of breast secondary to hypertensive crisis. Patient required IV Cardene drip. Patient seen and evaluated by Cardiology. Echocardiogram showed ejection fraction of 20%. Patient was weaned off Cardene IV drip to oral medication. Blood pressure now better controlled. Troponin was elevated but this was likely related to hypertensive crisis. This was confirmed by Cardiology. Patient without significant shortness of breath. No significant edema to the lower extremities noted. At discharge patient will continue with aspirin 81 mg daily, metoprolol 50 mg 1 pill twice daily, lisinopril 10 mg 1 pill twice daily, and hydralazine 25 mg 1 pill 3 times a day. Recommend to maintain blood pressure less than 140/90. May need to hold blood pressure medications in blood pressure systolic less than 120. May need to hold metopr olol if heart rate less than 50. Recommend to monitor blood pressure daily. Further adjustment in medication may be required for better control. Education on hypertension and CHF will be provided. Patient may benefit with Entresto for CHF in the future. This can be further addressed by cardiology and her PCP as an outpatient. Further evaluation by cardiology will be required. This includes cardiac intervention. Patient may also require pacemaker defibrillator in the future if her condition continues to decline. This can be addressed further by Cardiology. Recommend follow up with cardiology in 1-2 weeks to follow up this hospitalization and to further address her conditions. As mentioned above, patient found to have ejection fraction of 20%. Patient with systolic CHF. Suspect chronic CHF. No significant edema noted at this time. Shortness of breath improved. At discharge, Patient will also continue with a 1500 cc per day fluid restriction and low-salt diet. She is to monitor her weight daily. If her weight increases by more than 5 lb she is to contact her PCP or cardiology for further recommendation. At discharge patient will continue with Lasix 40 mg daily. Medication can be further adjusted and monitored by Cardiology. This can be weaned down to as needed bases if weight and shortness of breath well controlled. Patient had elevated liver function tests. CT scan revealed suspected small liver cysts. Suspect other etiology including fatty liver versus other. Liver function tests improved. Hepatitis panel and HIV panel obtained. This can be followed up as an outpatient. Recommend to recheck CMP in 1-2 weeks to monitor her progress. Recommend dedicated outpatient liver ultrasound to further evaluate. Patient may benefit with GI evaluation as an outpatient to further address. Patient with mild renal insufficiency likely related to above. Recommend outpatient renal ultrasound as an outpatient to further evaluate. Patient may benefit with nephrology evaluation as an outpatient to further address. Patient with abnormal thyroid function. Tsh and free T4 elevated. Recommend to recheck tsh and free T4 in 2-4 weeks to monitor progress. Patient may require endocrinology evaluation or medication if this remains abnormal. CT scan revealed fibroid uterus. Recommend gynecology evaluation as an outpatient to further address as an outpatient. Vital Signs/Physical Exam: Temp Pulse Resp BP Pulse Ox 97.6 F 85 18 140/100 H 99 06/15/20 08:00 06/15/20 08:00 06/15/20 08:00 06/15/20 08:00 06/15/20 08:00 General: Alert, In no apparent distress, Oriented x3, Cooperative HEENT: Atraumatic Neck: Supple Respiratory: Clear to auscultation bilaterally, Normal air movement Cardiovascular: Normal pulses, Regular rate/rhythm Gastrointestinal: Normal bowel sounds, Soft and benign, Non-distended, No tenderness, No masses, No rebound, No guarding Musculoskeletal: No erythema, No tenderness, No warmth Integumentary: No tenderness/swelling, No erythema, No warmth, No cyanosis Neurological: Normal speech, Normal strength at 5/5 x4 extr, Normal tone, Normal affect Laboratory Data at Discharge: WBC 9.3 K/uL (4.3-10.9) 06/14/20 05:45 Hgb 14.9 g/dL (12.0-15.0) 06/14/20 05:45 Hct 45.8 % (36.0-45.0) H 06/14/20 05:45 Plt Count 110 K/uL (152-406) L 06/14/20 05:45 PT 19.5 SECONDS (9.5-12.5) H 06/13/20 04:46 INR 1.67 06/13/20 04:46 Sodium 141 mmol/L (136-145) 06/15/20 06:09 Potassium 3.9 mmol/L (3.5-5.1) 06/15/20 06:09 BUN 25 mg/dL (7-18) H 06/15/20 06:09 Creatinine 1.28 mg/dL (0.55-1.3) 06/15/20 06:09 Glucose 145 mg/dL (74-106) H 06/15/20 06:09 Phosphorus 3.4 mg/dL (2.5-4.9) 06/14/20 05:45 Magnesium 2.0 mg/dL (1.8-2.4) 06/14/20 05:45 Total Bilirubin 2.6 mg/dL (0.2-1.0) H 06/14/20 05:45 AST 88 U/L (15-37) H 06/14/20 05:45 ALT 167 U/L (12-78) H 06/14/20 05:45 Alkaline Phosphatase 110 U/L (45-117) 06/14/20 05:45 Troponin I 0.14 ng/mL (0.0-0.045) H 06/13/20 20:09 Triglycerides 68 mg/dL (<150) 06/14/20 05:45 Cholesterol 107 mg/dL (<200) 06/14/20 05:45 HDL Cholesterol 20 mg/dL (40-60) L 06/14/20 05:45 Cholesterol/HDL Ratio 5.35 06/14/20 05:45 Home Medications: Aspirin [Aspirin EC 81 MG] 81 mg PO DAILY #90 tablet. 06/15/20 Furosemide [Lasix] 40 mg PO DAILY #30 tab 06/15/20 Hydralazine [Apresoline*] 25 mg PO TID #90 tab 06/15/20 Metoprolol Tartrate [Lopressor*] 50 mg PO BID 6AM 6PM #60 tab 06/15/20 lisinopriL [Prinivil*] 10 mg PO BID #60 tab 06/15/20 New Medications: Hydralazine [Apresoline*] 25 mg PO TID #90 tab Aspirin [Aspirin EC 81 MG] 81 mg PO DAILY #90 tablet. Furosemide [Lasix] 40 mg PO DAILY #30 tab Metoprolol Tartrate [Lopressor*] 50 mg PO BID 6AM 6PM #60 tab lisinopriL [Prinivil*] 10 mg PO BID #60 tab Patient Discharge Instructions: 1. Recommend follow up with PCP as an outpatient to further address. 2. Patient presented with shortness of breast secondary to hypertensive crisis. Patient required IV Cardene drip. Patient seen and evaluated by Cardiology. Echocardiogram showed ejection fraction of 20%. Patient was weaned off Cardene IV drip to oral medication. Blood pressure now better controlled. Troponin was elevated but this was likely related to hypertensive crisis. This was confirmed by Cardiology. Patient without significant shortness of breath. No significant edema to the lower extremities noted. At discharge patient will continue with aspirin 81 mg daily, metoprolol 50 mg 1 pill twice daily, lisinopril 10 mg 1 pill twice daily, and hydralazine 25 mg 1 pill 3 times a day. Recommend to maintain blood pressure less than 140/90. May need to hold blood pressure medications in blood pressure systolic less than 120. May need to hold metoprolol if heart rate less than 50. Recommend to monitor blood pressure daily. Further adjustment in medication may be required for better control. Education on hypertension and CHF will be provided. Patient may benefit with Entresto for CHF in the future. This can be further addressed by cardiology and her PCP as an outpatient. Further evaluation by cardiology will be required. This includes cardiac intervention. Patient may also require pacemaker defibrillator in the future if her condition continues to decline. This can be addressed further by Cardiology. Recommend follow up with cardiology in 1-2 weeks to follow up this hospitalization and to further address her conditions. 3. As mentioned above, patient found to have ejection fraction of 20%. Patient with systolic CHF. Suspect chronic CHF. No significant edema noted at this time. Shortness of breath improved. At discharge, Patient will also continue with a 1500 cc per day fluid restriction and low-salt diet. She is to monitor her weight daily. If her weight increases by more than 5 lb she is to contact her PCP or cardiology for further recommendation. At discharge patient will continue with Lasix 40 mg daily. Medication can be further adjusted and monitored by Cardiology. This can be weaned down to as needed bases if weight and shortness of breath well controlled. 4. Patient had elevated liver function tests. CT scan revealed suspected small liver cysts. Suspect other etiology including fatty liver versus other. Liver function tests improved. Hepatitis panel and HIV panel obtained. This can be followed up as an outpatient. Recommend to recheck CMP in 1-2 weeks to monitor her progress. Recommend dedicated outpatient liver u ltrasound to further evaluate. Patient may benefit with GI evaluation as an outpatient to further address. 5. Patient with mild renal insufficiency likely related to above. Recommend outpatient renal ultrasound as an outpatient to further evaluate. Patient may benefit with nephrology evaluation as an outpatient to further address. 6. Patient with abnormal thyroid function. Tsh and free T4 elevated. Recommend to recheck tsh and free T4 in 2-4 weeks to monitor progress. Patient may require endocrinology evaluation or medication if this remains abnormal. 7. CT scan revealed fibroid uterus. Recommend gynecology evaluation as an outpatient to further address as an outpatient. Diet: AHA Activity: Ad rony Time spent managing pt's care (in minutes): 55
[2020-06-15] MEDS ORDERED: lisinopriL 10 MG TAB PO SCH (21:00)
[2020-06-16] MEDS ORDERED: ASPIRIN EC 81 MG TAB PO SCH (09:00)
--- NOTE | 2020-06-17 08:31 | ECHO ---
HEIGHT: 5 ft 1 in WEIGHT: 223 lb 4.8 oz DATE OF STUDY: 06/14/[address]: Efrain Reddy MD 2-DIMENSIONAL: YES M.MODE: YES DOPPLER: YES COLOR FLOW: YES TDS: NO PORTABLE: NO DEFINITY: NO BUBBLE STUDY: NO DIAGNOSIS: HYPERTENSION CARDIAC HISTORY: CATHERIZATION: NO SURGERY: NO PROSTHETIC VALVE: NO PACEMAKER: NO MEASUREMENTS (cm) DIASTOLIC (NORMALS) SYSTOLIC (NORMALS) IVSd 1.4 (0.6-1.2) LA Diam 4.2 (1.9-4.0) LVEF 15-20% LVIDd 5.6 (3.5-5.7) LVIDs 5.2 (2.0-3.5) %FS 6% LVPWd 1.9 (0.6-1.2) Ao Diam 2.6 (2.0-3.7) 2 DIMENSIONAL ASSESSMENT: RIGHT ATRIUM: NORMAL, THROMBUS LEFT ATRIUM: DILATED RIGHT VENTRICLE: NORMAL LEFT VENTRICLE: LEFT VENTRICULAR HYPERTROPHY TRICUSPID VALVE: NORMAL MITRAL VALVE: NORMAL PULMONIC VALVE: NORMAL AORTIC VALVE: NORMAL PERICARDIAL EFFUSION: NONE AORTIC ROOT: NORMAL LEFT VENTRICULAR WALL MOTION: SEVERE GLOBAL HYPOKINESIS. DOPPLER/COLOR FLOW: MODERATE MITRAL AND TRICUSPID REGURGITATION. NORMAL RIGHT VENTRICULAR SYSTOLIC PRESSURE. COMMENTS: SEVERE LEFT VENTRICULAR HYPERTROPHY. SEVERE GLOBAL HYPOKINESIS. LEFT VENTRICULAR EJECTION FRACTION 15-20%. MODERATE MITRAL AND TRICUSPID REGURGITATION. NORMAL RIGHT VENTRICULAR SYSTOLIC PRESSURE. RIGHT ATRIAL THROMBUS. TECHNOLOGIST: Sandra SPIVEY
[2020-06-18 16:23] LABS: HIV AG/AB 4TH GEN Non-reactive (Non-reactive)
[2020-06-18 19:03] LABS: HBsAG Nonreactive (Nonreactive)
== END 2020-06-15 11:15 | disposition home or self-care (01) | DRG 305 ==
LOC: ER 03:34 → ERHOLD 09:44 → 4TH 06-15 03:23
PROVIDERS: ADMIT Hospitalist; ATTEND Family Medicine
DX: I16.1 Hypertensive emergency (principal); I50.22 Chronic systolic (congestive) heart failure; I11.0 Hypertensive heart disease with heart failure; N28.9 Disorder of kidney and ureter, unspecified; Z11.59 Encounter for screening for other viral diseases
CPT/HCPCS: 36415; 71045; 74176; 80048; 80053; 80061; 80074; 80076; 80307; 81003; 81025; 82140; 83605; 83735; 83880; 84100; 84439; 84443; 84484; 85025; 85610; 87389; 93005; 93306; 96365; 96375; 99285; J0360; J1650; J1940; J3486; J7030; J7050; U0003

== ENCOUNTER 2020-06-17 00:43 | Emergency (ER) | payer SELFPAY ==
--- NOTE | 2020-06-17 01:42 | ER ---
Nurse's Notes [facility] Name: Tyrel Harris Age: 54 yrs Sex: Female : 1965 Arrival Date: 06/17/2020 Time: 00:44 Bed 20 Private MD: Diagnosis: Dizziness and giddiness Presentation: 06/17 00:55 Chief complaint: Patient states: HAD AN EPISODE OF DIZZINESS UPON STANDING UP FROM THE rv BED TONIGHT, FOR ABOUT FIVE MINUTES. I JUST WANT TO KNOW IF MY MEDICATIONS WERE GIVING ME THE DIZZINESS. I WAS JUST DISCHARGED TODAY. PATIENT DENIES DIZZINESS AT THE MOMENT. Coronavirus screen: At this time, the client does not indicate any symptoms associated with coronavirus-19. Ebola Screen: No symptoms or risks identified at this time. Initial Sepsis Screen: Does the patient meet any 2 criteria? No. Patient's initial sepsis screen is negative. Does the patient have a suspected source of infection? No. Patient's initial sepsis screen is negative. Risk Assessment: Do you want to hurt yourself or someone else? Patient reports no desire to harm self or others. Onset of symptoms was June 16, 2020 at 22:00. 00:55 Method Of Arrival: Wheelchair 00:55 Acuity: ULYSSES 3 rv Triage Assessment: 01:01 General: Appears comfortable, Behavior is calm, cooperative. Pain: Denies pain. EENT: No signs and/or symptoms were reported regarding the EENT system. Neuro: Level of Consciousness is awake, alert, obeys commands, Oriented to person, place, time, situation, Reports dizziness, FOR ABOUT FIVE MINUTES, THREE HOURS AGO. Cardiovascular: Patient's skin is warm and dry. Respiratory: Airway is patent. Derm: Skin is intact. EYEGLASS CUTTER: 01:55 LMP N/A - Post-menopause bb Historical: - Allergies: 01: No Known Allergies; rv - Home Meds: : hydralazine 25 mg Oral tab 1 tab three times a day [Active]; furosemide 40 mg Oral tab rv 1 tab once daily [Active]; metoprolol tartrate 50 mg Oral tab 1 tab [Active]; aspirin 81 mg Oral chew 1 tab once daily [Active]; lisinopril 10 mg Oral tab 1 tab twice a day [Active]; - PMHx: 01: Hypertension; rv - PSHx: 01:01 None; rv - Immunization history:: Adult Immunizations up to date. - Social history:: Smoking status: Patient denies any tobacco usage or history of. Screenin:03 Abuse screen: Denies threats or abuse. Denies injuries from another. Nutritional rv screening: No deficits noted. Tuberculosis screening: No symptoms or risk factors identified. Fall Risk None identified. Assessment: 01:53 Reassessment: Patient is alert, oriented x 3, equal unlabored respirations, skin bb warm/dry/pink. pt verbalized understanding of and agrees to plan of care discharge instructions given pt assisted to exit via wheelchair. Pt has appt with physician tomorrow and will keep appointment. Vital Signs: 00:55 BP 190 / 116; Pulse 99; Resp 18; Temp 98.7; Pulse Ox 99% ; Weight 99.79 kg; Height 5 rv ft. 1 in. (154.94 cm); Pain 0/10; 00:55 Body Mass Index 41.57 (99.79 kg, 154.94 cm) rv ED Course: 00:44 Patient arrived in ED. cl3 00:[address], RN is Primary Nurse. rv 00:58 Triage completed. rv 01:03 Arm band placed on right wrist. Patient placed in the treatment room, on a stretcher, rv Patient notified of wait time. 01:03 Patient has correct armband on for positive identification. Pulse ox on. NIBP on. rv 01:09 Mario Rasheed MD is Attending Physician. [facility] 01:55 No provider procedures requiring assistance completed. Patient did not have IV access bb during this emergency room visit. Administered Medications: No medications were administered Outcome: 01:42 Discharge ordered by . 7 01:55 Discharged to home ambulatory. bb 01:55 Condition: stable 01:55 Discharge instructions given to patient, Instructed on discharge instructions, follow up and referral plans. Demonstrated understanding of instructions, follow-up care. 01:56 Patient left the ED. bb Signatures: Ana Mendez RN RN bb [address], NOELLE RN rv Lyla Browne cl3 Mario Rasheed MD MD [facility] Corrections: (The following items were deleted from the chart) 01:05 00:55 Acuity: ULYSSES 4 rv rv
--- NOTE | 2020-06-17 01:42 | EDPHYS ---
Physician Documentation [facility] Name: Tyrel Harris Age: 54 yrs Sex: Female : 1965 Arrival Date: 06/17/2020 Time: 00:44 Bed 20 Private MD: ED Physician Mario Rasheed HPI: 06/17 01:34 This 54 yrs old Black Female presents to ER via Wheelchair with complaints of Dizziness.mh7 01:34 The patient presents with dizziness, lightheadedness. mh7 01:34 Onset: The symptoms/episode began/occurred 4 hour(s) ago. Context: occurred at home, mh7 occurred while the patient was standing, just prior to the episode the patient experienced no apparent symptoms. Modifying factors: The symptoms are alleviated by nothing, the symptoms are aggravated by standing up. Associated signs and symptoms: Pertinent negatives: abdominal pain, agitation, ataxia, blurred vision, chest pain, combativeness, confusion, diaphoresis, focal weakness, head injury, headache, nausea, near-syncope, numbness, palpitations, , seizure, shortness of breath, syncope, tingling, vomiting. Severity of symptoms: At their worst the symptoms were mild 4 hour(s) ago, in the emergency department the symptoms have resolved 4 hour(s) prior to arrival. Patient states that she had an episode of dizziness with lightheaded when she stood up too fast that lasted a few minutes. She did not have LOC, headache, chest pain, nausea, vomiting, numbness/tingling, or weakness. The dizziness has not reoccurred.. 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 - Social history:: Smoking status: Patient denies any tobacco usage or history of. ROS: 01:34 Constitutional: Negative for fever, chills, and weight loss, Eyes: Negative for injury, mh7 pain, redness, and discharge, ENT: Negative for injury, pain, and discharge, Neck: Negative for injury, pain, and swelling, Cardiovascular: Negative for chest pain, palpitations, and edema, Respiratory: Negative for shortness of breath, cough, wheezing, and pleuritic chest pain, Abdomen/GI: Negative for abdominal pain, nausea, vomiting, diarrhea, and constipation, Back: Negative for injury and pain, : Negative for injury, bleeding, discharge, and swelling, MS/Extremity: Negative for injury and deformity, Skin: Negative for injury, rash, and discoloration, Psych: Negative for depression, anxiety, suicide ideation, homicidal ideation, and hallucinations, Allergy/Immunology: Negative for hives, rash, and allergies, Endocrine: Negative for neck swelling, polydipsia, polyuria, polyphagia, and marked weight changes, Hematologic/Lymphatic: Negative for swollen nodes, abnormal bleeding, and unusual bruising. Exam: 01:34 Constitutional: This is a well developed, well nourished patient who is awake, alert, mh7 and in no acute distress. Head/Face: Normocephalic, atraumatic. Eyes: Pupils equal round and reactive to light, extra-ocular motions intact. Lids and lashes normal. Conjunctiva and sclera are non-icteric and not injected. Cornea within normal limits. Periorbital areas with no swelling, redness, or edema. Neck: Trachea midline, no thyromegaly or masses palpated, and no cervical lymphadenopathy. Supple, full range of motion without nuchal rigidity, or vertebral point tenderness. No Meningismus. Chest/axilla: Normal chest wall appearance and motion. Nontender with no deformity. No lesions are appreciated. Cardiovascular: Regular rate and rhythm with a normal S1 and S2. No gallops, murmurs, or rubs. Normal PMI, no JVD. No pulse deficits. Respiratory: Lungs have equal breath sounds bilaterally, clear to auscultation and percussion. No rales, rhonchi or wheezes noted. No increased work of breathing, no retractions or nasal flaring. Abdomen/GI: Soft, non-tender, with normal bowel sounds. No distension or tympany. No guarding or rebound. No evidence of tenderness throughout. Back: No spinal tenderness. No costovertebral tenderness. Full range of motion. Skin: Warm, dry with normal turgor. Normal color with no rashes, no lesions, and no evidence of cellulitis. MS/ Extremity: Pulses equal, no cyanosis. Neurovascular intact. Full, normal range of motion. Neuro: Awake and alert, GCS 15, oriented to person, place, time, and situation. Cranial nerves II-XII grossly intact. Motor strength 5/5 in all extremities. Sensory grossly intact. Cerebellar exam normal. Normal gait. Psych: Awake, alert, with orientation to person, place and time. Behavior, mood, and affect are within normal limits. Vital Signs: 00:55 BP 190 / 116; Pulse 99; Resp 18; Temp 98.7; Pulse Ox 99% ; Weight 99.79 kg; Height 5 rv ft. 1 in. (154.94 cm); Pain 0/10; 00:55 Body Mass Index 41.57 (99.79 kg, 154.94 cm) rv MDM: 01:33 Patient medically screened. [facility] 01:34 Differential diagnosis: cardiac arrhythmia, hypovolemia, idiopathic dizziness, [facility] near-syncope, syncope, vertigo. Data reviewed: vital signs, nurses notes, old medical records. Data interpreted: Pulse oximetry: on room air is 99 %. Interpretation: normal. Counseling: I had a detailed discussion with the patient and/or guardian regarding: the historical points, exam findings, and any diagnostic results supporting the discharge/admit diagnosis, the presence of at least one elevated blood pressure reading (>120/80) during this emergency department visit, to return to the emergency department if symptoms worsen or persist or if there are any questions or concerns that arise at home. Refusal of service: The patient/guardian displays adequate decision making capability and despite a detailed discussion of alternatives, benefits, risks, and consequences refuses: CT Scan, all lab tests, all X-rays. 06:50 ED course: Patient declined any tests in the ED and will follow up with her doctor in [facility] the morning.. Administered Medications: No medications were administered Disposition: 06:50 Co-signature as Attending Physician, Mario Rasheed MD. [facility] Disposition: 06/17/20 01:42 Discharged to Home. Impression: Dizziness and giddiness. - Condition is Stable. - Discharge Instructions: Dizziness. - Medication Reconciliation Form, Thank You Letter, Antibiotic Education, Prescription Opioid Use form. - Follow up: Private Physician; When: Tomorrow; Reason: Worsening of condition, Recheck today's complaints, Continuance of care, Re-evaluation by your physician. - Problem is new. - Symptoms are resolved. Signatures: Ana Mendez RN RN bb Vicente, Ronaldo, RN RN rv Holmes, Maurice, MD MD mh7 Corrections: (The following items were deleted from the chart) 01:56 01:42 06/17/2020 01:42 Discharged to Home. Impression: Dizziness and giddiness. bb Condition is Stable. Forms are Medication Reconciliation Form, Thank You Letter, Antibiotic Education, Prescription Opioid Use. Follow up: Private Physician; When: Tomorrow; Reason: Worsening of condition, Recheck today's complaints, Continuance of care, Re-evaluation by your physician. Problem is new. Symptoms are resolved. mh7
[2020-06-20 03:39] VITALS: BP 190/116; TEMP 98.7; O2SAT 99
== END 2020-06-17 01:56 | disposition home or self-care (01) ==
LOC: ER 00:43
DX: R42 Dizziness and giddiness (principal); I10 Essential (primary) hypertension
CPT/HCPCS: 99283

== ENCOUNTER 2023-05-18 05:25 | Day surgery (SDC) | payer OTHER, SELFPAY ==
[2023-05-17 09:27] LABS: Absolute Lymphocytes (CBC) 1.2 K/uL (0.7-4.9); Hematocrit 41.5 % (36.0-45.0); Lymphocytes % 17.2 % (15.3-44.8); MCV 90.9 fL (80-100); MPV 10.2 fL (7.6-11.3); RBC Red Blood Cell Count 4.57 M/uL (3.86-4.86)
[2023-05-17 09:43] LABS: Potassium 4.3 mEq/L (3.5-5.1)
[2023-05-18] MEDS ORDERED: CEFAZOLIN SODIUM 1 GM/VIAL ONE (05:55)
[2023-05-18] MEDS ORDERED: Ringers Lactate 0 ML IV ONE (05:55)
[2023-05-18] MEDS ORDERED: NA CHLORIDE 0.9% 1,000 ML ONE (06:01)
[2023-05-18] MEDS ORDERED: EPINEPHRINE/PF 1 MG/ML AMP ONE (06:19)
[2023-05-18] MEDS ORDERED: LIDOCAINE 2% MPF 5 ML VIAL ONE ×2 (06:19→07:14)
[2023-05-18] MEDS ORDERED: dexAMETHasone 4 MG/ML VIAL ONE (06:19)
[2023-05-18] MEDS ORDERED: FENTANYL CITR 100 MCG/2 ML ONE (06:19)
[2023-05-18] MEDS ORDERED: MIDAZOLAM HCL 2 MG/2 ML INJ ONE (06:19)
[2023-05-18] MEDS ORDERED: ROPLVACAINE HCL 20 ML ONE ×2 (06:20)
[2023-05-18] MEDS ORDERED: propofoL 200 MG/20 ML VIAL IV ONE (07:14)
[2023-05-18] MEDS ORDERED: ONDANSETRON 4 MG/2 ML VIAL ONE (07:39)
--- NOTE | 2023-05-18 08:42 | RAD REPORT ---
EXAM DESCRIPTION: RAD - Wrist Right 2 View - 05/18/2023 8:37 am CLINICAL HISTORY: RT RADIAL ORIF Pain COMPARISON: No comparisons FINDINGS: Fluoroscopy time 0.9 minutes.
[2023-05-18 09:01] VITALS: O2SAT 98
--- NOTE | 2023-05-18 09:06 | OP ---
Date of Procedure: 05/18/2023 Surgeon: Israel Spangler MD Preoperative Diagnosis: Right comminuted and displaced intra-articular distal radius fracture. Postoperative Diagnosis: Right comminuted and displaced intra-articular distal radius fracture. Procedure: Open reduction and internal fixation of a two-part intra-articular distal radius fracture using the Acumed II volar radius plating set. Estimated Blood Loss: Less than 10 cc. Complications: There were no complications. Specimens: No pathology specimen sent. Indications For Operation: Ms. Harris is a 57-year-old female, who unfortunately fell injuring her [facility] upper extremity. She was seen and examined in my office and was found to be neurovascularly inta ct with no sign of an open injury; however, x-rays demonstrated a comminuted and highly displaced two -part distal radius fracture. Risks, benefits, and alternatives of different methods of treating thi s were discussed with her. She states she understands things as presented and opts for open reductio n and internal fixation and agrees to proceed. Description Of Procedure: The patient was taken to the operating room and placed in supine position. General anesthesia was obtained by staff. Following this, a well-padded tourniquet was placed on t he superior right arm. Right upper extremity was then prepped and draped in the usual fashion proced ure. Following this, it was then elevated, but not exsanguinated. Tourniquet was raised. A standar d volar approach of [place] was then used with a zigzag at the distal radius crease. This leads down t o the flexor carpi radialis, which was then exposed. It was then transferred radially to protect the radial artery. The underlying sheath was then exploited. The flexor pollicis longus, muscle belly, and tendon were then translated ulnarward to protect the median nerve. This leads down to the prona tor quadratus, which was divided in its mid substance and then moved off the flat surface of the radi us using a wooden handle elevator. A combination of manual techniques as well as a Shipman elevator th en used to establish a good reduction. This was followed by placement of the Acumed volar radius nabil ting set in standard fashion. C-arm was used, AP and lateral to ensure a good reduction as well as p lacement of the screws. The wound was then irrigated and the skin was then closed using nylon suture s. The patient was placed in a very well-padded volar splint and awakened and taken to recovery room in good condition. FARRUKH Voice ID: [id number] Report ID: [id number]
[2023-05-18 10:08] VITALS: BP 154/70; TEMP 97.8
== END 2023-05-18 09:59 | disposition home or self-care (01) ==
LOC: OR 05:25
PROVIDERS: ATTEND Orthopaedic Surgery
PROC: 0PSH04Z Reposition Right Radius with Internal Fixation Device, Open Approach (ICD-10-PCS; principal; 2023-05-18 07:00)
DX: S52.571A Other intraarticular fracture of lower end of right radius, initial encounter for closed fracture (principal); I10 Essential (primary) hypertension; I25.10 Atherosclerotic heart disease of native coronary artery without angina pectoris; E11.9 Type 2 diabetes mellitus without complications; K21.9 Gastro-esophageal reflux disease without esophagitis; F41.9 Anxiety disorder, unspecified; E66.9 Obesity, unspecified; N18.9 Chronic kidney disease, unspecified; Z86.73 Personal history of transient ischemic attack (TIA), and cerebral infarction without residual deficits
CPT/HCPCS: 85025; 80048; 36415; 82947 ×2; 73100; 25608; J2704; J1100; J0171; J2001 ×2; J2250; J3010; J2405; J7030; J0690; J7120